=== PATIENT | male | born 1965 | race Two or more races ===

== ENCOUNTER 2024-02-28 09:56 | Outpatient (AMB) | payer OTHER, SELFPAY ==
--- NOTE | 2024-02-28 09:57 | MHC.OFFVIS ---
Vital Signs 02/28/24 10:07 Height 5 ft 7 in Weight 221 lb BMI 34.6 BP 136/74 Blood Pressure Location Rt brachial Position Sitting Pulse 62 Intake Visit Reasons: Inguinal hernia Intake Note: Patient referred by pcp Dr. Patino for Lt umbilical hernia. Present for 3-4wks. Noticed after prostate MRI. Patient c/o: denies pain or discomfort. [employer]aking [employer] Work[employer] Required: No Accompanied by: Self / Same As Patient Allergies No Known Allergies Allergy (Verified 02/28/24 10:03) HPI Comments Details: Patient presents for evaluation of umbilical and left inguinal hernia. He had an incidental findings of these on a recent MRI for prostate evaluation. His umbilical hernias occasionally symptomatic but with a inguinal hernia causes minimal symptoms. Otherwise, tolerating a diet, has regular bowel habits. It is doing minimally strenuous activities. 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 Chart was reviewed and patient evaluated [facility] Medical History (Updated 02/28/24 @ 10:05 by TY Goode) Enlarged adenoids Surgical History (Updated 02/28/24 @ 10:22 by Antelmo Cronin MD) History of tonsillectomy Family History (Updated 02/28/24 @ 10:06 by TY Goode) Mother Liver cancer Social History (Updated 02/28/24 @ 10:06 by TY Goode) Patient Tobacco Use Status: Former Tobacco user Non Cigarette Tobacco use Quit date or years: AQuit in 2014 Physical Exam Vital Signs: Last Vital Signs Pulse 62 02/28/24 10:07 BP 136/74 02/28/24 10:07 BMI result Body Mass Index 34.6 GI Other: Patient was examined standing with Valsalva. Corpulent abdomen. Right groin negative. Genitalia within normal limits. Moderately sized reducible left inguinal hernia. Roughly 2 cm reducible umbilical hernia. Assessment & Plan Assessment & Plan (1) Umbilical hernia: Code(s): K42.9 - Umbilical hernia without obstruction or gangrene Category: Surgical (2) Left inguinal hernia: Code(s): K40.90 - Unilateral inguinal hernia, without obstruction or gangrene, not specified as recurrent Category: Surgical Plan I discussed therapeutic options with the patient which include conservative therapy was sequential follow-ups or repair of 1 or the other or both hernias at the same sitting. Patient will like to be treated conservatively and we will follow-up with him in a roughly 6 months, and during this interim should his hernias become more symptomatic, he has been instructed to contact the office. All questions answered. Patient will see me as directed above or p.r.n.. Coding Level of Care Code New Pt Level 4 (51085) Diagnoses Umbilical hernia K42.9 Left inguinal hernia K40.90
[2024-02-28 10:07] VITALS: BP 136/74; PULSE 62; BMI 34.6
== END 2024-02-28 10:23 | disposition home or self-care (01) ==
PROVIDERS: PCP Internal Medicine; Referring Provider Internal Medicine; Visit Provider Surgery
DX: K42.9 Umbilical hernia without obstruction or gangrene (principal); K40.90 Unilateral inguinal hernia, without obstruction or gangrene, not specified as recurrent
CPT/HCPCS: 99204

== ENCOUNTER → 2024-02-28 09:56 | Outpatient (BNVA) | payer OTHER, SELFPAY | PROVIDERS: PCP Internal Medicine; Referring Provider Internal Medicine; Visit Provider Surgery | DX: K40.90 Unilateral inguinal hernia, without obstruction or gangrene, not specified as recurrent (principal) | CPT/HCPCS: 99202 ==